=== PATIENT | male | born 1965 | race Caucasian/White ===

== ENCOUNTER 2018-06-23 08:55 | Emergency (ER) | payer OTHER ==
[2018-06-23 09:05] VITALS: TEMP 98.2; BMI 29.7
[2018-06-23] MEDS ORDERED: ONDANSETRON 4 MG/2 ML VIAL IVPUSH ONE (10:12)
[2018-06-23] MEDS ORDERED: KETOROLAC TROMETHAMINE 30 MG/1 ML VIAL IVPUSH STA (10:12)
[2018-06-23] MEDS ORDERED: SODIUM CHLORIDE 1,000 ML IV STA (10:12)
[2018-06-23] MEDS ORDERED: KETOROLAC TROMETHAMINE 30 MG/1 ML VIAL ONE (10:21)
[2018-06-23] MEDS ORDERED: ONDANSETRON 4 MG/2 ML VIAL ONE (10:21)
[2018-06-23 10:40] LABS: BASO % 0.2 % (0-2.0); EOS % 0.2 % (0-4.5); HEMATOCRIT 39.2 % (35.4-49); LYMPH % 13.7 % (8-40); MCH 31.1 pg (25.7-33.7); MCHC 33.3 g/dl (32.0-35.9); MEAN CELL VOLUME 93.3 fl (80-96); MEAN PLT VOLUME 8.4 fl (7.5-11.1); MONO % 3.2 % (3.8-10.2); NEUT % 82.7 % (42.8-82.8); PLATELET COUNT 306 K/MM3 (134-434); RDW 13.7 % (11.9-15.9); WHITE BLOOD COUNT 11.3 K/mm3 (4.0-10.0)
[2018-06-23 10:41] LABS: EPI CELLS 0.9 /HPF (0-5/HPF); PH,URINE 6.5 (5.0-8.0); URINE APPEARANCE CLEAR; URINE BACTERIA 1.7 /hpf (NEGATIVE); URINE BILIRUBIN NEGATIVE (NEGATIVE); URINE CASTS 3 /hpf (0-8); URINE COLOR DK YELLOW; URINE GLUCOSE (UA) NEGATIVE (NEGATIVE); URINE KETONE NEGATIVE (NEGATIVE); URINE LEUK ESTERASE 1+ (NEGATIVE); URINE NITRITE POSITIVE (NEGATIVE); URINE PROTEIN NEGATIVE (NEGATIVE); URINE RBC 1 /hpf (0-4); URINE WBC 1 /hpf (0-5)
[2018-06-23 11:04] LABS: ALBUMIN 4.1 g/dl (3.4-5.0); ALK PHOS 72 U/L (45-117); ANION GAP 5 MMOL/L (8-16); BILIRUBIN,TOTAL 0.4 mg/dL (0.2-1); BLOOD UREA NITROGEN 20 mg/dL (7-18); CALCIUM 9.1 mg/dL (8.5-10.1); CHLORIDE 106 mmol/L (98-107); CO2 27 mmol/L (21-32); CREATININE 1.1 mg/dL (0.55-1.3); GLUCOSE,RANDOM 117 mg/dL (74-106); LIPASE 116 U/L (73-393); POTASSIUM 4.1 mmol/L (3.5-5.1); SGOT/AST 16 U/L (15-37); SGPT/ALT 23 U/L (13-61); SODIUM 138 mmol/L (136-145); TOT PROT 7.6 g/dl (6.4-8.2)
--- NOTE | 2018-06-23 13:28 | PDOC ---
History of Present Illness - General Chief Complaint: Pain, Acute Stated Complaint: RT FLANK PAIN, URINARY PROBLEMS Time Seen by Provider: 06/23/18 10:11 History Source: Patient Exam Limitations: No Limitations - History of Present Illness Travel History: No Initial Comments: 06/23/18 10:22 52 y/o male presents to the ED with c/o rt flank, dysuria and frequency of urination x 2 days. pt states hx of gallstones with cholecystectomy in 2014 bur denies hx of renal colic. pt states pain began upon awakening 2 days ago which he attributed to drinking alcohol heavily 3 days ago. pt denies fever, diarrhea , abd distention, or vomiting. pt does state + nausea. Pt denies weight change or recent travel. Timing/Duration: reports: getting worse Quality: reports: moderate, cramping, sharpness Abdominal Pain Onset Location: reports: flank (rt) Pain Radiation: reports: no radiation Activities at Onset: reports: none Aggravating Factors: improves with: None Alleviating Factors: improves with: None Past History - Travel Traveled outside of the country in the last 30 days: No Close contact w/someone who was outside of country & ill: No - Past Medical History Allergies/Adverse Reactions: Allergies Allergy/AdvReac Type Severity Reaction Status Date / Time No Known Allergies Allergy Verified 06/23/18 09:04 Home Medications: Ambulatory Orders Levofloxacin [Levaquin] 750 mg PO DAILY #5 tablet 06/23/18 Oxycodone HCl/Acetaminophen [Percocet 5-325 mg Tablet] 1 - 2 tab PO Q6H PRN #12 tab MDD 4 06/23/18 Tamsulosin HCl [Flomax] 0.4 mg PO DAILY #7 cap.er.24h 06/23/18 COPD: No GI Disorders: Yes (gerd/reflux/heartburn) - Surgical History Cholecystectomy: Yes Orthopedic Surgery: Yes - Immunization History Td Vaccination: Yes Immunization Up to Date: Yes - Suicide/Smoking/Psychosocial Hx Smoking Status: No Smoking History: Never smoked Years of Tobacco Use: 0 Number of Cigarettes Smoked Daily: 0 Cigars Per Day: 0 Information on smoking cessation initiated: No Hx Alcohol Use: Yes (weekly) Drug/Substance Use Hx: No Substance Use Type: Alcohol Hx Substance Use Treatment: No Patient Lives Alone: No Lives with/in: spouse/SO Abd/GI Specific PMHX - Complaint Specific PMHX Gall Bladder Disease: Yes Review of Systems - Review of Systems Able to Perform ROS?: No Is the patient limited [place]er proficient: No Constitutional: Yes: Weakness HEENTM: No: Symptoms Reported Respiratory: No: Symptoms reported Cardiac (ROS): No: Symptoms Reported ABD/GI: Yes: Nausea, Abdominal cramping. No: Vomiting : Yes: Dysuria, Frequency, Flank Pain Musculoskeletal: No: Symptoms Reported Integumentary: No: Symptoms Reported Neurological: No: Symptoms reported Endocrine: No: Symptoms Reported Hematologic/Lymphatic: No: Symptoms Reported *Physical Exam - Vital Signs Last Vital Signs Temp Pulse Resp BP Pulse Ox 98.2 F 72 17 122/82 98 06/23/18 09:02 06/23/18 09:02 06/23/18 09:02 06/23/18 09:02 06/23/18 09:02 - Physical Exam General Appearance: Yes: Nourished, Appropriately Dressed. No: Apparent Distress HEENT: positive: EOMI, PK, TMs Normal, Pharynx Normal. negative: Pale Conjunctivae Neck: positive: Normal Thyroid, Supple Respiratory/Chest: positive: Lungs Clear, Normal Breath Sounds. negative: Respiratory Distress, Accessory Muscle Use Cardiovascular: positive: Regular Rhythm, Regular Rate. negative: Murmur Gastrointestinal/Abdominal: positive: Soft, Tenderness (rt flank) Musculoskeletal: negative: CVA Tenderness Extremity: positive: Normal Capillary Refill. negative: Pedal Edema Integumentary: positive: Normal Color, Warm, Moist Neurologic: positive: Motor Strength 5/5 (ambulatory) ED Treatment Course - LABORATORY CBC & Chemistry Diagram: 06/23/18 10:25 06/23/18 10:25 - ADDITIONAL ORDERS Additional order review: Laboratory Results 06/23/18 06/23/18 10:25 10:25 Sodium 138 Potassium 4.1 Chloride 106 Carbon Dioxide 27 Anion Gap 5 L BUN 20 H Creatinine 1.1 Creat Clearance w eGFR 70.29 Random Glucose 117 H Calcium 9.1 Total Bilirubin 0.4 AST 16 ALT 23 Alkaline Phosphatase 72 Total Protein 7.6 Albumin 4.1 Lipase 116 Urine Color Dk yellow Urine Appearance Clear Urine pH 6.5 Ur Specific Hell[place] 1.021 Urine Protein Negative Urine Glucose (UA) Negative Urine Ketones Negative Urine Blood Negative Urine Nitrite Positive H Urine Bilirubin Negative Urine Urobilinogen 1.0 Ur Leukocyte Esterase 1+ H Urine WBC (Auto) 1 Urine RBC (Auto) 1 Urine Casts (Auto) 3 U Epithel Cells (Auto) 0.9 Urine Bacteria (Auto) 1.7 06/23/18 10:25 RBC 4.20 MCV 93.3 MCHC 33.3 RDW 13.7 MPV 8.4 Neutrophils % 82.7 Lymphocytes % 13.7 D Monocytes % 3.2 L Eosinophils % 0.2 D Basophils % 0.2 - RADIOLOGY Radiology Studies Ordered: Category Date Time Status SPIRAL- RENAL-STONE CT [CT] Stat CT Scan 06/23/18 10:14 Completed - Medications Given in the ED: ED Medications Discontinued Medications Generic Name Dose Route Start Last Admin Trade Name Freq PRN Reason Stop Dose Admin Sodium Chloride 1,000 mls @ 1,000 mls/hr 06/23/18 10:12 06/23/18 10:31 Normal Saline - IV 06/23/18 11:11 1,000 mls/hr ASDIR STA Administration Ketorolac Tromethamine 30 mg 06/23/18 10:12 06/23/18 10:31 Toradol Injection - IVPUSH 06/23/18 10:13 30 mg ONCE STA Administration Ondansetron HCl 4 mg 06/23/18 10:12 06/23/18 10:32 Zofran Injection IVPUSH 06/23/18 10:13 4 mg ONCE ONE Administration Medical Decision Making - Medical Decision Making 06/23/18 11:33 CC: rt flank pain w/ nausea x 2 days w/ urinary complaints. Exam: rt flank tenderness, appears uncomfortable. no cva tenderness Plan: LABS, URINE, IVF, ZOFRAN, TORADOL, AND SPIRAL CT 06/23/18 13:39 Laboratory Tests 06/23/18 06/23/18 06/23/18 10:25 10:25 10:25 WBC 11.3 H Hgb 13.0 Hct 39.2 Absolute Neuts (auto) 9.4 H Neutrophils % 82.7 Lymphocytes % 13.7 D Monocytes % 3.2 L Eosinophils % 0.2 D Basophils % 0.2 Sodium 138 Potassium 4.1 Chloride 106 Carbon Dioxide 27 Anion Gap 5 L BUN 20 H Creatinine 1.1 Creat Clearance w eGFR 70.29 Random Glucose 117 H Calcium 9.1 Total Bilirubin 0.4 AST 16 ALT 23 Alkaline Phosphatase 72 Total Protein 7.6 Albumin 4.1 Lipase 116 Ur Specific [place] 1.021 Urine Protein Negative Urine Ketones Negative Urine Blood Negative Urine Nitrite Positive H Urine Bilirubin Negative Urine Urobilinogen 1.0 Ur Leukocyte Esterase 1+ H Urine WBC (Auto) 1 Urine RBC (Auto) 1 Urine Casts (Auto) 3 U Epithel Cells (Auto) 0.9 Urine Bacteria (Auto) 1.7 Pt with uti. U cx sent . No previous ucx on file. 06/23/18 13:40 There are punctate calcifications within each kidney consistent w/ nonobstructing calculi. + fat containing hernia. *DC/Admit/Observation/Transfer Diagnosis at time of Disposition: UTI (urinary tract infection), Renal colic - Discharge Dispostion Disposition: HOME Condition at time of disposition: Improved - Prescriptions Prescriptions: Levofloxacin [Levaquin] 750 mg PO DAILY #5 tablet Oxycodone HCl/Acetaminophen [Percocet 5-325 mg Tablet] 1 - 2 tab PO Q6H PRN #12 tab MDD 4 PRN Reason: Pain Tamsulosin HCl [Flomax] 0.4 mg PO DAILY #7 cap.er.24h - Referrals Referrals: Chandler Fisher [Primary Care Provider] - Nagi Kaur MD [Staff Physician] - - Patient Instructions Printed Discharge Instructions: DI for Kidney Stones, DI for Urinary Tract Infection (UTI) Additional Instructions: Please take abx as prescribed and flomax also. May strain urine. Take percocet for extreme pain. Otherwise take Tylenol. - Post Discharge Activity
[2018-06-23 14:30] VITALS: BP 115/72; PULSE 71
== END 2018-06-23 14:35 | disposition home or self-care (01) ==
LOC: JER 08:55
PROC: 3E033GC Introduction of Other Therapeutic Substance into Peripheral Vein, Percutaneous Approach (ICD-10-PCS; principal; 2018-06-23)
PROC: 3E0333Z Introduction of Anti-inflammatory into Peripheral Vein, Percutaneous Approach (ICD-10-PCS; 2018-06-23)
DX: N39.0 Urinary tract infection, site not specified (principal); N20.0 Calculus of kidney
CPT/HCPCS: 36415; 74176-TC; 80053; 81003; 83690; 85025; 87086; 99284-25; J7030